=== PATIENT | male | born 1990 | race Caucasian/White ===

== ENCOUNTER 2021-11-02 02:14 | Emergency (ER) | payer MEDICAID, SELFPAY ==
[2021-11-02 02:19] VITALS: BP 124/81; PULSE 96; RESP 18; TEMP 36.6; O2SAT 97; BMI 21.7
--- NOTE | 2021-11-02 02:38 | W.ED.ALLEREA ---
HPI - Allergic Reaction General: Chief complaint: Allergic Reaction Stated complaint: Posion Sanam Time Seen by Provider: 11/02/21 02:25 Source: patient History of Present Illness: HPI narrative: 31-year-old male with a history of poison sanam exposure several days ago. His symptoms were mild until yesterday, when he erupted was a more widespread rash. It itches. No fever. No systemic symptoms. MD complaint: allergic reaction and hives Associated symptoms: Reports itching and rash; Deny abdominal pain, difficulty breathing, facial swelling, lip swelling, nausea or tongue swelling Severity: moderate Treatment prior to arrival: benadryl and topical medicine Review of Systems Const: Denies: fever(s) ENMT: Denies: throat pain or odynophagia GI: Denies: abdominal pain or nausea All/Imm: Denies: tongue swelling or facial swelling Physical Exam Const: COMMON NORMALS: no acute distress HENMT: COMMON NORMALS: normocephalic, atraumatic and Normal external nose present HEAD & SCALP: normocephalic and atraumatic FACE & SINUS: erythema (left periorbital) NOSE: Normal external nose present Eye: COMMON NORMALS: Equal, round and reactive pupils present and EOMs intact bilaterally PUPIL: Yes Equal, round and reactive pupils present Neck/C-Spine: GENERAL: Yes trachea midline Chest: CHEST: Yes Symmetrical chest wall rise Resp: COMMON NORMALS: normal respiratory effort, No use of accessory muscles and clear to auscultation bilaterally AUSCULTATION: clear to auscultation bilaterally Cardio: COMMON NORMALS: regular rate and regular rhythm RATE: regular rate RHYTHM: regular rhythm GI: COMMON NORMALS: Normal to inspection, nondistended, normoactive bowel sounds present Neuro: IVONE COMA SCALE: document GCS findings [place] coma scale eye opening: Spontaneous [place] coma scale verbal response: Orientated Ivone coma scale motor response: Obey commands [place]ogan coma scale total score: 15 Skin: NARRATIVE SKIN EXAM: Patient with widespread contact dermatitis, some overlying urticaria. Course Vital Signs: Vital signs: Vital Signs Temperature 97.9 F 11/02/21 03:11 Pulse Rate 93 11/02/21 03:11 Respiratory Rate 18 11/02/21 03:11 Blood Pressure 124/81 11/02/21 03:11 Pulse Oximetry 98 11/02/21 03:11 MDM - Allergic Reaction Medical Decision Making No respiratory symptoms. Widespread contact dermatitis with overlying urticaria in some places involving the face, neck, chest back belly and extremities. He will be placed on a taper of steroids slowly over the next 9 days or so after initial dose here with antihistamines as well. Discharge Plan Discharge Patient Disposition: Home Clinical Impression: Contact dermatitis and eczema due to plant Condition: Stable Prescriptions: New prednisone 10 mg tablet See Rx Instructions .ROUTE .COMPLEX Qty: 21 0RF Rx Instructions: 4 [id number], then 2 [id number], then 1 [id number] Discharge Orders: Discharge ED (Routine); Ordered 11/02/21 Ordered By: Wilner Plascencia Discharge Diet: Advance as tolerated Discharge Activity: Increase activity as tolerated Patient Instructions: Contact Dermatitis (ED), Poison Sanam (ED) Activity Restrictions/Additional Instructions: Medications as directed. Continue to take benadryl and/or Zyrtec for itching as well. Coding Level of Care Code ED Professor Of Historical Theology for Missy Taylor
[2021-11-02] MEDS: famotidine 20 mg Tablet PO (03:06)
[2021-11-02] MEDS: diphenhydrAMINE 50 mg Capsule PO (03:06)
[2021-11-02] MEDS: predniSONE 20 mg Tablet 60 MG PO (03:06)
[2021-11-02 03:11] VITALS: BP 124/81; PULSE 93; RESP 18; TEMP 36.6; O2SAT 98
== END 2021-11-02 03:12 | disposition home or self-care (01) ==
PROVIDERS: Emergency Provider Emergency Medicine
DX: L25.5 Unspecified contact dermatitis due to plants, except food (principal)
CPT/HCPCS: 99283; J7512; Q0163

== ENCOUNTER 2021-12-23 17:51 | Emergency (ER) | payer MEDICAID, SELFPAY ==
[2021-12-23 17:55] VITALS: BP 112/75; PULSE 111; RESP 16; TEMP 36.6; O2SAT 96; BMI 21.7
--- NOTE | 2021-12-23 18:14 | ED_ITS ---
HPI - Dental/Oral General: Chief complaint: Dental/Oral Stated complaint: Jaw pain Time Seen by Provider: 12/23/21 18:09 Source: patient Mode of arrival: ambulatory Limitations: no limitations History of Present Illness: 31-year-old male states has been having right jaw pain over the last week. He states that anytime he opens his mouth he has pain in his jaw he states he does grind his teeth very bad at night and he does notice it more in the morning when he wakes up. Denies any fever denies any tooth pain Associated symptoms: Denies fever(s) Review of Systems Const: Denies: fever(s), chills, body aches or change in appetite Eyes: Denies: blurry vision or eye discomfort ENMT: Reports: dental pain Card: Denies: chest pain Resp: Denies: dyspnea GI: Denies: abdominal pain, nausea, vomiting or diarrhea : Denies: dysuria Musc: Denies: neck pain or back pain Skin/Breast: Denies: rash Neuro: Denies: headache(s) Psych: Denies: depression Asif/Lymph: Denies: easy bruising All/Imm: Denies: urticaria PFSH ED PFSH: Medical History Alcohol dependence, uncomplicated Chronic posttraumatic stress disorder Nicotine dependence, cigarettes, uncomplicated Psychiatric care Social History Smoking and tobacco status: current every day smoker cigarettes Packs smoked per day: 0.5 Quit status (tobacco): considering quitting Physical Exam Const: COMMON NORMALS: no acute distress, patient oriented x3 and healthy appearing HENMT: COMMON NORMALS: normocephalic and atraumatic HEAD & SCALP: normocephalic and atraumatic OTHER: Tenderness along right jaw pain with opening his jaw has no trismus no dental infection or abscess he does have tenderness over his pterygoid muscle Eye: COMMON NORMALS: conjunctivae normal CONJUNCTIVA: Yes conjunctivae normal Neck/C-Spine: COMMON NORMALS: full ROM and supple Chest: COMMONS NORMALS: normal inspection of the chest Resp: COMMON NORMALS: normal respiratory effort Cardio: COMMON NORMALS: regular rate and No murmurs present (Cardio) RATE: regular rate GI: INSPECTION: Yes normal to inspection Extremity: COMMON NORMALS: normal to inspection and full ROM Neuro: COMMON NORMALS: patient oriented x3, moves all extremities and no focal motor deficits Psych: COMMON NORMALS: mental status grossly normal, Normal thought process present and cooperative THOUGHT PROCESS: Normal thought process present Skin: COMMON NORMALS: no rashes or lesions noted and no wounds GENERAL SKIN EXAM: no rashes or lesions noted Course Vital Signs: Vital signs: Vital Signs Temperature 97.9 F 12/23/21 17:55 Pulse Rate 111 H 12/23/21 17:55 Respiratory Rate 16 12/23/21 17:55 Blood Pressure 112/75 12/23/21 17:55 Pulse Oximetry 96 12/23/21 17:55 Oxygen Delivery Me thod 12/23/21 17:55 MDM - Dental/Oral Medical Decision Making Patient presents with likely TMJ I did recommend a mouthguard at night as he states he does grind his teeth at night we will place him on Naprosyn he has no trismus here no signs of any dental infection he is stable for discharge she is to follow-up with PCP and return if worsening. Discharge Plan Discharge Patient Disposition: Home Clinical Impression: TMJ arthralgia Condition: Stable Prescriptions: New Naprosyn 500 mg tablet 500 mg PO BID PRN (Reason: pain) Qty: 20 0RF No Action duloxetine [Cymbalta] 60 mg capsule,delayed release(DR/EC) 60 mg PO DAILY Qty: 30 1RF hydroxyzine HCl 25 mg tablet 25 mg PO BID PRN (Reason: anxiety) Qty: 60 1RF Discharge Orders: Discharge ED (Routine); Ordered 12/23/21 Ordered By: Shilpi Diggs Discharge Diet: Advance as tolerated Discharge Activity: Resume usual activity Patient Instructions: Temporomandibular Disorder (ED) Coding Level of Care Code ED Medical Biller/Coder for Missy Taylor
[2021-12-23] MEDS: naproxen 500 mg Tablet PO (18:26)
[2021-12-23] MEDS: HYDROcodone-acetaminophen 5-325 mg Tablet 1 TAB PO (18:27)
== END 2021-12-23 18:29 | disposition home or self-care (01) ==
PROVIDERS: Emergency Provider Emergency Medicine
DX: M26.629 Arthralgia of temporomandibular joint, unspecified side (principal); F17.210 Nicotine dependence, cigarettes, uncomplicated
CPT/HCPCS: 99283

== ENCOUNTER → 2022-10-30 17:49 | Outpatient (BNVA) | payer MEDICAID, SELFPAY | PROVIDERS: Visit Provider Emergency Medicine | DX: J02.9 Acute pharyngitis, unspecified (principal) | CPT/HCPCS: 87880 ==